=== PATIENT | male | born 2000 | race Caucasian/White ===

== ENCOUNTER 2020-08-31 21:01 | Emergency (ER) | payer OTHER ==
[~2020-08-31] VITALS: Ht 180.3 cm; Wt 95.3 kg
--- NOTE | 2020-08-31 21:41 | ED Upper Extremity ---
General Chief Complaint: Upper Extremity Stated Complaint: R MIDDLE FINGER BURN Source: patient Exam Limitations: no limitations History of Present Illness Date Seen by Provider: Aug 31, 2020 Time Seen by Provider: 21:26 Initial Comments This is a healthy-appearing 20-year-old male presented to ER with complaints of redness and swelling of his right middle finger after he burned it with a casting mold approximately one and half weeks ago. States his finger is still red and swollen, he is concerned about possible infection. Denies fevers, chills, nausea, vomiting. Allergies and Home Medications Allergies Coded Allergies: No Known Drug Allergies (Unverified , 08/31/20) Patient Home Medication List Home Medication List Reviewed: Yes Review of Systems Constitutional: no symptoms reported EENTM: no symptoms reported Respiratory: no symptoms reported Cardiovascular: no symptoms reported Gastrointestinal: no symptoms reported Genitourinary: no symptoms reported Musculoskeletal: no symptoms reported Skin: see HPI Psychiatric/Neurological: No Symptoms Reported Physical Exam Vital Signs Vital Signs - First Documented 08/31/20 21:07 Temp 35.4 Pulse 80 Resp 18 B/P (MAP) 132/86 (101) Pulse Ox 99 O2 Delivery Room Air Capillary Refill : Height, Weight, BMI Height: '" Weight: lbs. oz. kg; BMI Method: General Appearance: WD/WN, no apparent distress HEENT: PERRL/EOMI, normal ENT inspection Neck: full range of motion, normal inspection Cardiovascular: normal peripheral pulses, regular rate, rhythm, no murmur Respiratory: lungs clear, normal breath sounds, no respiratory distress Back: normal inspection Shoulder: normal inspection, no evidence of injury Elbow/Forearm: normal inspection, no evidence of injury Wrist: Yes normal inspection, Yes no evidence of injury Hand: Right (burn on right finger ) Neurologic/Tendon: normal sensation; No normal motor functions (limited ROM right middle finger ); normal tendon functions Neurologic/Psychiatric: no motor/sensory deficits, alert, normal mood/affect, oriented x 3 Skin: normal color, warm/dry Progress/Results/Core Measures Results/Orders My Orders Orders - RUBY DIEZ APRN Bacitracin Ointment (Bacitracin Ointment (08/31/20 21:45) Vital Signs/I&O Progress Progress Note : Progress Note Due to length and extent of wound, will plan to clean with bacitracin and have him follow-up with general surgery as he may possibly require grafting. Erythema surrounding burn is consistent with inflammatory changes versus cellulitis. Has no purulent discharge. Reviewed discharge plan and he is agreeable with plan. No questions or concerns at this time. Departure Impression Primary Impression: Full thickness burn of right middle finger Disposition: 01 HOME, SELF-CARE Condition: Stable Departure-Patient Inst. Decision time for Depature: 21:40 Referrals: NO,LOCAL PHYSICIAN (PCP/Family) Primary Care Physician Patient Instructions: Debridement of a Wound or Burn (DC) Add. Discharge Instructions: Plan: 1. Discharge home. Wash hand with soap and water. Apply bacitracin twice a day. Keep covered. 2. May take Tylenol or Ibuprofen as needed for pain per package instructions. 3. Follow up Dr. Novoa or Dr. Andres. Call tomorrow to schedule appointment. 4. Return for any new or concerning symptoms. All discharge instructions reviewed with patient and/or family. Voiced understanding. Copy Copies To 1: ERIC NOVOA DO; DIMITRIOS ANDRES DO RUBY DIEZ APRN Aug 31, 2020 21:41
[2020-08-31] MEDS ORDERED: BACITRACIN OINTMENT 28 GM TUBE TOP SCH (21:45)
[2020-08-31 21:50] VITALS: BP 132/86
== END 2020-08-31 21:50 | disposition home or self-care (01) ==
LOC: ER 21:04
DX: T23.321A Burn of third degree of single right finger (nail) except thumb, initial encounter (principal); Z77.120 Contact with and (suspected) exposure to mold (toxic); X18.XXXA Contact with other hot metals, initial encounter

== ENCOUNTER 2020-09-28 10:19 | Outpatient (RCR) | payer OTHER | END 2020-10-20 14:00 | disposition home or self-care (01) | PROVIDERS: ATTEND Surgery | DX: S69.91XA Unspecified injury of right wrist, hand and finger(s), initial encounter (principal); X58.XXXA Exposure to other specified factors, initial encounter ==